=== PATIENT | female | born 1935 | race Caucasian/White ===

== ENCOUNTER 2016-11-05 10:53 | Emergency (ER) | payer MEDICARE, BC ==
[~2016-11-05] VITALS: Ht 165.1 cm; Wt 86.4 kg
[~2016-11-05 10:53] MED LIST: ADVAIR 250/28 DISKU1 IH; ADVIL 200MG TA200 MG PO; ALBUTEROL SULFAT3 M3 IH; ALLEGRA 180MG180 MG PO; ALLEGRA60 MG PO; ASPIR-LOW81 MG PO; ASPIRIN E.C. 8181 MG PO; ASTELIN NASAL S34 ML NS; AVELOX 400MG T400 MG PO; CALCIUM CITRAT200 MG PO; CARAFATE 1GM1 G PO; CARDIZEM CD120 MG PO; CETIRIZINE; CITRACAL + D 251 TAB PO; CITRACAL + D CA1 TAB PO; COLACE 100100 MG/CAP PO; COQ1060 MG PO; DIFLUCAN 100MG100 MG PO; DIOVAN HCT 25 M1 TA1 PO; DIOVAN HCT 25 M1 TAB PO; DIOVAN160 MG PO; DUONEB 3 MG/3 ML3 ML IH; FENTANYL 12MCG TD; FENTANYL 12MCG TOP; FENTANYL 25 MCG TD; FENTANYL 25 MCG TOP; FEXOFENADINE180 MG PO; FISH OIL CONC1000 MG PO; FISH OIL1 IU PO; FISH OIL1000 MG PO; FLAGYL500 MG PO; FLEXERIL 1010 MG/TAB PO; FLEXERIL10 MG PO; FLONASE NASAL S16 GM NS; GABAPENTIN; GARLIC PO; GARLIC SUPPLEM300 MG PO; GENTAMICIN180 MG/501 NS; GLUCOSAMINE & C1 CA1 PO; GLUCOSAMINE & C1 TA1 PO; GLUCOSAMINE/CHONDROI PO; HCTZ 25MG25 MG PO; HYDROXYCHLOROQ200 M1 PO; L-LYSINE MONOHY1 POW PO; L-LYSINE PO; L-LYSINE500 MG PO; LEVAQUIN 750MG750 M1 PO; LORTAB 7.5/5001 TAB PO; LOVENOX100 MG/ML SC; MUCINEX 60600 MG/TA1 PO; MVI PO; NEURONTIN300 MG/CAP PO; NORCO 325 MG-7.1 TAB PO; OXYCODONE5 MG PO; PLAQUENIL 200M200 MG PO; PLAQUENIL PO; PRAVACHOL 40MG40 MG PO; PREDNISONE 5MG5 MG PO; PREDNISONE20 MG; PREDNISONE20 MG PO; PREVACID 30MG30 M1 PO; PREVACID 30MG30 MG PO; PROVENTIL0.09 MG/A1 IH; PULMICORT0.5 MG/21 IH; RT ADVAIR HFA 1112 G IH; SEE LIST; SENOKOT8.6 MG PO; SINGULAIR 110 MG/TAB PO; SINGULAIR10 MG PO; SPIRIVA18 MCG IH; STRESS TABLETS1 TAB PO; TOPROL XL 25MG25 MG PO; TRAMADOL50 MG PO; ULTRAM 50MG TAB50 MG PO; ULTRAM100 MG PO; VALTREX1 GM PO; VITAMIN B-6 PO; VITAMIN B-650 MG PO; VITAMIN B650 MG PO; VITAMIN D PO; VITAMIN D50000 IU PO; VITAMIN E-400200 IU PO; VITAMIN E1000 U/CAP PO; VITAMIN E28000 IU TP; ZITHROMAX500 M2 PO; [UNRECOGNIZED DRUG - OTHER] PO; unknown meds
[2016-11-05 11:05] VITALS: TEMP 98.4
[2016-11-05 13:40] VITALS: BP 136/80; PULSE 74
[2016-11-11] MEDS ORDERED: NORCO 325 MG-7.1 TAB PO (08:58)
[2016-11-11] MEDS ORDERED: XARELTO10 MG PO (08:58)
== END 2016-11-05 13:42 | disposition home or self-care (01) ==
LOC: COL.ER 10:53
DX: S52.571A Other intraarticular fracture of lower end of right radius, initial encounter for closed fracture (principal); W18.09XA Striking against other object with subsequent fall, initial encounter
CPT/HCPCS: J3010

== ENCOUNTER → 2016-11-11 | Day surgery (SDC) | payer MEDICARE, BC ==
[~2016-11-11] VITALS: Ht 165.1 cm; Wt 87.1 kg
[~2016-11-11] MED LIST changes: +ALBUTEROL0.83 MG/ML IH; +CIPRO 500MG TA500 MG PO; +RT ADVAIR HFA 2312 G IH; +SPIRIVA RE2.5 MCG/Ac IH; +WOMEN'S DAILY1 TAB PO; +XARELTO10 MG PO
[2016-11-11 10:58] VITALS: BP 133/57; PULSE 83; TEMP 98.6
[2016-11-11 11:15] VITALS: BP 114/89; PULSE 83
[2016-11-11 11:30] VITALS: BP 132/90; PULSE 84
[2016-11-11 15:16] VITALS: BP 148/83; PULSE 78; TEMP 98.8
[2016-11-11 15:43] VITALS: BP 135/68; PULSE 80
== END ==
LOC: SDCO 11-09 09:30
DX: R06.02 Shortness of breath (principal); R05 Cough; M06.9 Rheumatoid arthritis, unspecified; G47.33 Obstructive sleep apnea (adult) (pediatric); M32.9 Systemic lupus erythematosus, unspecified; I27.2 Other secondary pulmonary hypertension; J32.9 Chronic sinusitis, unspecified; K21.9 Gastro-esophageal reflux disease without esophagitis; Z79.52 Long term (current) use of systemic steroids; J45.909 Unspecified asthma, uncomplicated; R60.9 Edema, unspecified; J38.7 Other diseases of larynx; Z79.899 Other long term (current) drug therapy
CPT/HCPCS: J2704; J3010

== ENCOUNTER 2016-11-13 16:13 | Emergency (ER) | payer MEDICARE, BC ==
[~2016-11-13] VITALS: Ht 165.1 cm; Wt 86.4 kg
[~2016-11-13 16:13] MED LIST changes: -ALBUTEROL0.83 MG/ML IH; -CIPRO 500MG TA500 MG PO; -RT ADVAIR HFA 2312 G IH; -SPIRIVA RE2.5 MCG/Ac IH; -WOMEN'S DAILY1 TAB PO
[2016-11-13 16:17] VITALS: TEMP 98.9
[2016-11-13 17:05] LABS: BASO % 0.2 % (0.0-2.0); GRAN # 7.7 (1.4-6.5); LYMPH # 0.9 (1.2-3.4); LYMPH % 9.1 % (20.0-51.0); MEAN CELL VOLUME 89 fl (80.0-100.0); MEAN CORPUSCULAR HGB CONC 33 g/dl (33.0-37.0); MONO # 1.1 (0.1-0.6); MONO % 10.8 % (1.7-9.3); PLATELET COUNT 280 K/mm3 (130-400); RED BLOOD COUNT 3.73 M/mm3 (4.10-5.30); REDCELL DISTRIBUTION WIDTH-CV 14.6 % (11.5-14.5); WHITE BLOOD COUNT 9.7 K/mm3 (4.8-10.8)
[2016-11-13 17:06] LABS: MEAN CORPUSCULAR HEMOGLOBIN 29 pg (27.0-31.0)
[2016-11-13] MEDS ORDERED: WOMEN'S DAILY1 TAB PO (17:14)
[2016-11-13] MEDS ORDERED: RT ADVAIR HFA 2312 G IH (17:16)
[2016-11-13 17:25] LABS: ADJUSTED CALCIUM 9.4 mg/dL (8.4-10.2); ALBUMIN 3.8 gm/dL (3.5-5.0); BILIRUBIN,TOTAL 0.9 mg/dL (0.0-1.0); CALCIUM 9.2 mg/dL (8.4-10.2); CREATININE, serum 0.97 mg/dL (0.52-1.25); POTASSIUM 4.8 mmol/L (3.4-5.0); TOTAL PROTEIN 7.3 gm/dL (6.4-8.2)
[2016-11-13 18:08] VITALS: BP 117/52; PULSE 75
== END 2016-11-13 18:10 | disposition home or self-care (01) ==
LOC: COL.ER 16:13
PROVIDERS: Family Medicine
DX: J20.9 Acute bronchitis, unspecified (principal)
CPT/HCPCS: J2930

== ENCOUNTER 2016-11-30 08:57 | Day surgery (SDC) | payer MEDICARE, BC ==
[~2016-11-30] VITALS: Ht 165.1 cm; Wt 87.0 kg
[~2016-11-30 08:57] MED LIST changes: +RT ADVAIR HFA 2312 G IH; +WOMEN'S DAILY1 TAB PO
[2016-11-30] MEDS ORDERED: PREDNISONE 5MG5 MG PO (10:01)
[2016-11-30 10:02] VITALS: BP 140/111; PULSE 74; TEMP 97.6
[2016-11-30 10:30] VITALS: BP 135/52; PULSE 78; TEMP 98.5
[2016-11-30 10:45] VITALS: BP 138/56; PULSE 78
[2016-11-30 11:00] VITALS: BP 141/63; PULSE 77
[2016-11-30 11:30] VITALS: BP 117/59; PULSE 82
== END 2016-11-30 11:30 | disposition home or self-care (01) ==
LOC: SDCO 08:57
DX: R05 Cough (principal); R06.02 Shortness of breath; M06.9 Rheumatoid arthritis, unspecified; M32.9 Systemic lupus erythematosus, unspecified; G47.33 Obstructive sleep apnea (adult) (pediatric); K21.9 Gastro-esophageal reflux disease without esophagitis; I27.2 Other secondary pulmonary hypertension; Z79.899 Other long term (current) drug therapy; Z79.52 Long term (current) use of systemic steroids; J45.909 Unspecified asthma, uncomplicated; R60.9 Edema, unspecified; J38.7 Other diseases of larynx; J32.9 Chronic sinusitis, unspecified; B49 Unspecified mycosis
CPT/HCPCS: J2704

== ENCOUNTER → 2017-01-12 | Outpatient (CLI) | payer MEDICARE, BC ==
[~2017-01-12] MED LIST changes: +ALBUTEROL0.83 MG/ML IH; +CIPRO 500MG TA500 MG PO; +SPIRIVA RE2.5 MCG/Ac IH
== END ==
LOC: MC.RAD 14:20
DX: Z12.31 Encounter for screening mammogram for malignant neoplasm of breast (principal)

== ENCOUNTER 2017-06-21 19:25 | Inpatient (IN) | payer MEDICARE, BC ==
[~2017-06-21] VITALS: Ht 165.1 cm; Wt 87.0 kg
[~2017-06-21 19:25] MED LIST changes: -ALBUTEROL0.83 MG/ML IH; -CIPRO 500MG TA500 MG PO; -SPIRIVA RE2.5 MCG/Ac IH
[2017-06-21 20:44] LABS: BASO % 0.2 % (0.0-2.0); EOS % 0.2 % (0-4.0); GRAN # 5.5 (1.4-6.5); GRAN % 87.6 % (42.2-75.2); HEMATOCRIT 41.2 % (37.0-47.0); HEMOGLOBIN 13.8 g/dl (12.5-16.0); LYMPH # 0.2 (1.2-3.4); LYMPH % 2.5 % (20.0-51.0); MEAN CELL VOLUME 88 fl (80.0-100.0); MEAN CORPUSCULAR HEMOGLOBIN 30 pg (27.0-31.0); MEAN CORPUSCULAR HGB CONC 34 g/dl (33.0-37.0); MEAN PLATELET VOLUME 9.4 fl (7.4-10.4); MONO # 0.6 (0.1-0.6); MONO % 9.2 % (1.7-9.3); PLATELET COUNT 199 K/mm3 (130-400); RED BLOOD COUNT 4.67 M/mm3 (4.10-5.30); REDCELL DISTRIBUTION WIDTH-CV 14.6 % (11.5-14.5); WHITE BLOOD COUNT 6.3 K/mm3 (4.8-10.8)
[2017-06-21 20:56] LABS: ALANINE AMINOTRANSFERASE 39 U/L (9-52); ALBUMIN 4.4 gm/dL (3.5-5.0); ALKALINE PHOSPHATASE 53 U/L (50-136); ANION GAP 13 mmol/L (7-16); BILIRUBIN,TOTAL 0.7 mg/dL (0.0-1.0); BLOOD UREA NITROGEN 27 mg/dL (7-17); C-REACTIVE PROTEIN 2.2 mg/dL (0.0-0.9); CALCIUM 9.3 mg/dL (8.4-10.2); CARBON DIOXIDE 23 mmol/L (22-30); CHLORIDE 101 mmol/L (98-107); CREATININE, serum 0.97 mg/dL (0.52-1.25); GLUCOSE 120 mg/dL (74-106); LIPASE 47 U/L (23-300); POTASSIUM 4.5 mmol/L (3.4-5.0); SODIUM 138 mmol/L (137-145); TOTAL PROTEIN 7.7 gm/dL (6.4-8.2)
[2017-06-21 21:13] LABS: TROPONIN-I < 0.012 ng/mL (0.000-0.034)
[2017-06-22 00:41] VITALS: BP 121/42; PULSE 92; TEMP 99.9
[2017-06-22] MEDS ORDERED: SPIRIVA RE2.5 MCG/Ac IH (00:59)
[2017-06-22] MEDS ORDERED: ALBUTEROL0.83 MG/ML IH (01:07)
[2017-06-22 05:21] VITALS: BP 127/43; PULSE 97; TEMP 98.2
[2017-06-22 07:27] VITALS: BP 110/81; PULSE 94; TEMP 98.6
[2017-06-22 11:15] VITALS: BP 121/40; PULSE 88; TEMP 98.8
[2017-06-22 15:07] VITALS: BP 139/44; PULSE 92; TEMP 99.6
[2017-06-22 22:51] VITALS: BP 100/79; PULSE 88; TEMP 99
[2017-06-23 05:45] VITALS: BP 121/63; PULSE 85; TEMP 98.7
[2017-06-23 07:24] VITALS: BP 135/65; PULSE 90; TEMP 98.6
[2017-06-23 11:47] LABS: PH 5 (5-8); URINE APPEARANCE Cloudy; URINE BILIRUBIN Negative (NEGATIVE); URINE BLOOD 2+ (NEGATIVE); URINE COLOR Amber; URINE GLUCOSE Negative (NEGATIVE); URINE KETONE Negative (NEGATIVE); URINE UROBILINOGEN Negative (NEGATIVE)
[2017-06-23 11:48] LABS: URINE BACTERIA Occasional /hpf
[2017-06-23 12:31] LABS: BASO % 0.2 % (0.0-2.0); GRAN # 4.7 (1.4-6.5); GRAN % 87.5 % (42.2-75.2); LYMPH # 0.3 (1.2-3.4); LYMPH % 4.7 % (20.0-51.0); MEAN CELL VOLUME 90 fl (80.0-100.0); MEAN CORPUSCULAR HGB CONC 33 g/dl (33.0-37.0); MEAN PLATELET VOLUME 9.8 fl (7.4-10.4); MONO # 0.4 (0.1-0.6); MONO % 6.9 % (1.7-9.3); PLATELET COUNT 162 K/mm3 (130-400); RED BLOOD COUNT 3.78 M/mm3 (4.10-5.30); REDCELL DISTRIBUTION WIDTH-CV 15.4 % (11.5-14.5); WHITE BLOOD COUNT 5.4 K/mm3 (4.8-10.8)
[2017-06-23 12:33] LABS: HEMATOCRIT 34.1 % (37.0-47.0); HEMOGLOBIN 11.2 g/dl (12.5-16.0); MEAN CORPUSCULAR HEMOGLOBIN 30 pg (27.0-31.0)
[2017-06-23 12:40] LABS: CALCIUM 7.7 mg/dL (8.4-10.2); CREATININE, serum 0.76 mg/dL (0.52-1.25); POTASSIUM 4.3 mmol/L (3.4-5.0)
[2017-06-23 12:46] VITALS: BP 123/58; PULSE 93; TEMP 98.3
[2017-06-23 14:54] VITALS: BP 145/57; PULSE 88; TEMP 99.3
[2017-06-23 21:36] VITALS: BP 137/48; PULSE 91; TEMP 98.5
[2017-06-24 01:28] VITALS: BP 115/46; PULSE 76; TEMP 98
[2017-06-24 05:16] VITALS: BP 115/47; PULSE 78; TEMP 97.6
[2017-06-24 08:57] VITALS: BP 140/64; PULSE 95; TEMP 98.1
[2017-06-24 09:03] LABS: BASO % 0.2 % (0.0-2.0); GRAN % 73.7 % (42.2-75.2); LYMPH # 0.8 (1.2-3.4); LYMPH % 14.2 % (20.0-51.0); MEAN CELL VOLUME 89 fl (80.0-100.0); MEAN CORPUSCULAR HGB CONC 34 g/dl (33.0-37.0); MEAN PLATELET VOLUME 9.9 fl (7.4-10.4); MONO # 0.6 (0.1-0.6); MONO % 11.5 % (1.7-9.3); PLATELET COUNT 163 K/mm3 (130-400); RED BLOOD COUNT 3.91 M/mm3 (4.10-5.30); REDCELL DISTRIBUTION WIDTH-CV 15.1 % (11.5-14.5); WHITE BLOOD COUNT 5.4 K/mm3 (4.8-10.8)
[2017-06-24 09:07] LABS: HEMATOCRIT 34.6 % (37.0-47.0); HEMOGLOBIN 11.7 g/dl (12.5-16.0); MEAN CORPUSCULAR HEMOGLOBIN 30 pg (27.0-31.0)
[2017-06-24 09:20] LABS: CALCIUM 7.5 mg/dL (8.4-10.2); CREATININE, serum 0.66 mg/dL (0.52-1.25); POTASSIUM 3.8 mmol/L (3.4-5.0)
[2017-06-24 12:00] VITALS: BP 128/56; PULSE 86; TEMP 99.1
[2017-06-24] MEDS ORDERED: PREDNISONE 5MG5 MG PO (14:38)
[2017-06-24] MEDS ORDERED: CIPRO 500MG TA500 MG PO (14:38)
== END 2017-06-24 18:09 | disposition home or self-care (01) | DRG 389 ==
LOC: COL.ER 19:25 → MEDICAL 23:26 → COL.ER 23:26 → MEDICAL 23:32
PROVIDERS: Emergency Medicine; Physician Assistant
DX: K56.60 Unspecified intestinal obstruction (principal); N39.0 Urinary tract infection, site not specified; M32.9 Systemic lupus erythematosus, unspecified; I10 Essential (primary) hypertension; J44.9 Chronic obstructive pulmonary disease, unspecified; E86.0 Dehydration; R19.7 Diarrhea, unspecified; Z98.1 Arthrodesis status
CPT/HCPCS: OP; 99231-AI; 99233-AI; 99239; J0696; J1170; J1720; J2405; J3480; J7030; J7512; Q9967

== ENCOUNTER → 2017-07-05 | Outpatient (CLI) | payer MEDICARE, BC ==
[~2017-07-05] MED LIST changes: +ALBUTEROL0.83 MG/ML IH; +CIPRO 500MG TA500 MG PO; +SPIRIVA RE2.5 MCG/Ac IH
[2017-07-05 12:26] LABS: BASO % 0.3 % (0.0-2.0); EOS % 0.3 % (0-4.0); GRAN # 4.7 (1.4-6.5); GRAN % 77.6 % (42.2-75.2); LYMPH # 0.8 (1.2-3.4); LYMPH % 13.3 % (20.0-51.0); MEAN CELL VOLUME 89 fl (80.0-100.0); MEAN CORPUSCULAR HEMOGLOBIN 29 pg (27.0-31.0); MEAN CORPUSCULAR HGB CONC 33 g/dl (33.0-37.0); MEAN PLATELET VOLUME 9.7 fl (7.4-10.4); MONO # 0.5 (0.1-0.6); PLATELET COUNT 216 K/mm3 (130-400); RED BLOOD COUNT 4.09 M/mm3 (4.10-5.30); REDCELL DISTRIBUTION WIDTH-CV 15.6 % (11.5-14.5); WHITE BLOOD COUNT 6.1 K/mm3 (4.8-10.8)
[2017-07-05 12:36] LABS: HEMATOCRIT 36.4 % (37.0-47.0)
== END ==
LOC: COL.RAD 07-04 13:30 → COL.LAB 10:25 → COL.RAD 10:30
PROVIDERS: Internal Medicine
DX: J45.40 Moderate persistent asthma, uncomplicated (principal)

== ENCOUNTER → 2017-08-16 | Outpatient (CLI) | payer MEDICARE, BC | LOC: COL.RAD 09:16 | DX: I27.0 Primary pulmonary hypertension (principal); R06.00 Dyspnea, unspecified; Z86.711 Personal history of pulmonary embolism; R76.0 Raised antibody titer | CPT/HCPCS: A9539; A9540 ==

== ENCOUNTER → 2018-04-17 | Outpatient (CLI) | payer MEDICARE, BC | LOC: MC.RAD 11:40 | DX: Z12.31 Encounter for screening mammogram for malignant neoplasm of breast (principal) ==

== ENCOUNTER 2018-09-29 13:28 | Inpatient (IN) | payer MEDICARE, BC ==
[~2018-09-29] VITALS: Ht 165.1 cm; Wt 80.2 kg
[2018-09-29 15:57] LABS: COLLECTION METHOD CLEAN CATCH
[2018-09-29 16:02] LABS: MUCOUS Present /lpf; PH 5 (5-8); SQUAMOUS EPITHELIAL 0-2 /hpf; URINE APPEARANCE Clear; URINE BACTERIA None Seen /hpf; URINE BILIRUBIN Negative (NEGATIVE); URINE BLOOD 1+ (NEGATIVE); URINE COLOR Yellow; URINE GLUCOSE Negative (NEGATIVE); URINE KETONE Trace (NEGATIVE); URINE LEUKOCYTE ESTERASE Negative (NEGATIVE); URINE NITRATE Negative (NEGATIVE); URINE PROTEIN(semi-quant) 2+ (NEGATIVE); URINE RBC 0-2 /hpf; URINE UROBILINOGEN Negative (NEGATIVE)
[2018-09-29] MEDS ORDERED: PROLIA60 MG/ML SQ (16:02)
[2018-09-29] MEDS ORDERED: NORVASC 5MG5 MG/TAB PO (16:02)
[2018-09-29] MEDS ORDERED: VOLTAREN GEL 1%1 TU TP (16:02)
[2018-09-29] MEDS ORDERED: EPA FISH OIL1 SGL (16:06)
[2018-09-29] MEDS ORDERED: LASIX 20MG TABL20 MG PO (16:13)
[2018-09-29] MEDS ORDERED: L-LYSINE500 M1 (16:13)
[2018-09-29] MEDS ORDERED: NATURAL E400 IU PO (16:14)
[2018-09-29] MEDS ORDERED: GLUCOSAMINE & C1 CA2 PO (16:15)
[2018-09-29 16:24] LABS: HEMATOCRIT 40.1 % (37.0-47.0); HEMOGLOBIN 13.8 g/dl (12.5-16.0); MEAN CELL VOLUME 85 fl (80.0-100.0); MEAN CORPUSCULAR HEMOGLOBIN 29 pg (27.0-31.0); MEAN CORPUSCULAR HGB CONC 34 g/dl (33.0-37.0); MEAN PLATELET VOLUME 9.4 fl (7.4-10.4); PLATELET COUNT 255 K/mm3 (130-400); REDCELL DISTRIBUTION WIDTH-CV 14.6 % (11.5-14.5)
[2018-09-29 16:36] LABS: BILIRUBIN,TOTAL 0.5 mg/dL (0.0-1.0); C-REACTIVE PROTEIN 3.8 mg/dL (0.0-0.9); CALCIUM 8.9 mg/dL (8.4-10.2); CREATININE, serum 0.9 mg/dL (0.52-1.25); POTASSIUM 4.4 mmol/L (3.4-5.0); TOTAL PROTEIN 7.3 gm/dL (6.4-8.2)
[2018-09-29 16:46] LABS: BAND 3 % (0-10); LYMPHOCYTE 4 % (20.0-51.0); NEUTROPHILS 85 % (42.0-75.2); PLATELET ESTIMATE NORMAL (NORMAL)
[2018-09-29] MEDS ORDERED: CIPRO 500MG TA500 MG PO ×2 (17:55)
[2018-09-29] MEDS ORDERED: FLAGYL500 MG PO ×2 (17:55)
[2018-09-29 20:35] VITALS: BP 133/48; PULSE 85; TEMP 99.8
[2018-09-29 23:45] VITALS: BP 121/42; PULSE 91; TEMP 98.6
[2018-09-30 04:13] VITALS: BP 142/50; PULSE 84
[2018-09-30 07:15] VITALS: BP 107/49; PULSE 85; TEMP 98.3
[2018-09-30 07:17] LABS: BASO % 0.4 % (0.0-2.0); EOS % 0.1 % (0-4.0); GRAN # 6.3 (1.4-6.5); HEMOGLOBIN 12.1 g/dl (12.5-16.0); LYMPH # 0.7 (1.2-3.4); LYMPH % 9.1 % (20.0-51.0); MEAN CELL VOLUME 88 fl (80.0-100.0); MEAN CORPUSCULAR HEMOGLOBIN 30 pg (27.0-31.0); MEAN CORPUSCULAR HGB CONC 34 g/dl (33.0-37.0); MEAN PLATELET VOLUME 9.7 fl (7.4-10.4); MONO # 0.7 (0.1-0.6); MONO % 8.6 % (1.7-9.3); PLATELET COUNT 188 K/mm3 (130-400); RED BLOOD COUNT 4.07 M/mm3 (4.10-5.30)
[2018-09-30 07:21] LABS: HEMATOCRIT 35.7 % (37.0-47.0)
[2018-09-30 07:29] LABS: CALCIUM 7.7 mg/dL (8.4-10.2); CREATININE, serum 0.76 mg/dL (0.52-1.25); POTASSIUM 3.8 mmol/L (3.4-5.0)
[2018-09-30 11:25] VITALS: BP 144/48; PULSE 86; TEMP 98.6
[2018-09-30 15:15] VITALS: BP 123/47; PULSE 87; TEMP 98.6
[2018-09-30 20:20] VITALS: BP 119/81; PULSE 79
[2018-10-01 00:47] VITALS: BP 129/53; PULSE 80
[2018-10-01 04:58] VITALS: BP 126/52; PULSE 77; TEMP 97.4
[2018-10-01 06:23] LABS: BASO % 0.5 % (0.0-2.0); GRAN % 70.2 % (42.2-75.2); HEMOGLOBIN 10.6 g/dl (12.5-16.0); LYMPH # 0.7 (1.2-3.4); LYMPH % 16.2 % (20.0-51.0); MEAN CELL VOLUME 88 fl (80.0-100.0); MEAN CORPUSCULAR HEMOGLOBIN 30 pg (27.0-31.0); MEAN CORPUSCULAR HGB CONC 34 g/dl (33.0-37.0); MEAN PLATELET VOLUME 9.7 fl (7.4-10.4); MONO # 0.5 (0.1-0.6); MONO % 11.6 % (1.7-9.3); PLATELET COUNT 171 K/mm3 (130-400); RED BLOOD COUNT 3.59 M/mm3 (4.10-5.30); REDCELL DISTRIBUTION WIDTH-CV 15.2 % (11.5-14.5)
[2018-10-01 06:29] LABS: HEMATOCRIT 31.6 % (37.0-47.0)
[2018-10-01 06:30] LABS: ALBUMIN 2.7 gm/dL (3.5-5.0); BILIRUBIN,TOTAL 0.3 mg/dL (0.0-1.0); CALCIUM 6.8 mg/dL (8.4-10.2); CREATININE, serum 0.65 mg/dL (0.52-1.25); POTASSIUM 3.3 mmol/L (3.4-5.0); TOTAL PROTEIN 5.6 gm/dL (6.4-8.2)
[2018-10-01 07:39] VITALS: BP 101/71; PULSE 72; TEMP 98.3
[2018-10-01 11:26] VITALS: BP 136/52; PULSE 86; TEMP 98.4
[2018-10-01 15:03] VITALS: BP 119/46; PULSE 98; TEMP 97.5
[2018-10-01 19:36] VITALS: BP 136/46; PULSE 88; TEMP 98.7
[2018-10-02] VITALS (7 sets, daily range): BP systolic 106–142; BP diastolic 43–80; PULSE 72–89; TEMP 97.3–100.3
[2018-10-02 06:06] LABS: BASO % 0.3 % (0.0-2.0); EOS # 0.1 (0.0-0.7); EOS % 2.6 % (0-4.0); GRAN # 1.9 (1.4-6.5); GRAN % 60.5 % (42.2-75.2); HEMOGLOBIN 10.9 g/dl (12.5-16.0); LYMPH # 0.7 (1.2-3.4); LYMPH % 21.2 % (20.0-51.0); MEAN CELL VOLUME 88 fl (80.0-100.0); MEAN CORPUSCULAR HEMOGLOBIN 29 pg (27.0-31.0); MEAN CORPUSCULAR HGB CONC 34 g/dl (33.0-37.0); MEAN PLATELET VOLUME 9.7 fl (7.4-10.4); MONO # 0.5 (0.1-0.6); MONO % 15.4 % (1.7-9.3); PLATELET COUNT 202 K/mm3 (130-400); RED BLOOD COUNT 3.71 M/mm3 (4.10-5.30); REDCELL DISTRIBUTION WIDTH-CV 15.3 % (11.5-14.5)
[2018-10-02 06:12] LABS: HEMATOCRIT 32.5 % (37.0-47.0)
[2018-10-02 06:13] LABS: CALCIUM 7.2 mg/dL (8.4-10.2); CREATININE, serum 0.67 mg/dL (0.52-1.25); POTASSIUM 3.9 mmol/L (3.4-5.0)
[2018-10-03] VITALS (7 sets, daily range): BP systolic 99–142; BP diastolic 51–65; PULSE 67–91; TEMP 98.1–99.3
[2018-10-03 06:11] LABS: BASO % 0.9 % (0.0-2.0); EOS # 0.1 (0.0-0.7); EOS % 3.2 % (0-4.0); GRAN % 62.2 % (42.2-75.2); HEMOGLOBIN 11.4 g/dl (12.5-16.0); LYMPH # 0.6 (1.2-3.4); LYMPH % 20.2 % (20.0-51.0); MEAN CELL VOLUME 87 fl (80.0-100.0); MEAN CORPUSCULAR HEMOGLOBIN 29 pg (27.0-31.0); MEAN CORPUSCULAR HGB CONC 33 g/dl (33.0-37.0); MEAN PLATELET VOLUME 9.2 fl (7.4-10.4); MONO # 0.4 (0.1-0.6); MONO % 13.2 % (1.7-9.3); PLATELET COUNT 209 K/mm3 (130-400); RED BLOOD COUNT 3.93 M/mm3 (4.10-5.30); REDCELL DISTRIBUTION WIDTH-CV 15.2 % (11.5-14.5)
[2018-10-03 06:12] LABS: HEMATOCRIT 34.1 % (37.0-47.0)
[2018-10-03 06:24] LABS: CALCIUM 7.2 mg/dL (8.4-10.2); CREATININE, serum 0.62 mg/dL (0.52-1.25); POTASSIUM 3.7 mmol/L (3.4-5.0)
[2018-10-04 01:11] VITALS: BP 139/49; PULSE 88; TEMP 98.7
[2018-10-04 04:45] VITALS: BP 148/57; PULSE 88; TEMP 97.8
[2018-10-04 07:38] VITALS: BP 123/70; PULSE 81; TEMP 98.9
[2018-10-04 08:54] LABS: BASO % 0.7 % (0.0-2.0); EOS # 0.1 (0.0-0.7); EOS % 3.4 % (0-4.0); GRAN # 1.7 (1.4-6.5); GRAN % 59.3 % (42.2-75.2); HEMATOCRIT 34.3 % (37.0-47.0); HEMOGLOBIN 11.5 g/dl (12.5-16.0); LYMPH # 0.7 (1.2-3.4); LYMPH % 22.6 % (20.0-51.0); MEAN CELL VOLUME 87 fl (80.0-100.0); MEAN CORPUSCULAR HEMOGLOBIN 29 pg (27.0-31.0); MEAN CORPUSCULAR HGB CONC 34 g/dl (33.0-37.0); MEAN PLATELET VOLUME 9.4 fl (7.4-10.4); MONO # 0.4 (0.1-0.6); MONO % 13.7 % (1.7-9.3); PLATELET COUNT 209 K/mm3 (130-400); RED BLOOD COUNT 3.94 M/mm3 (4.10-5.30); REDCELL DISTRIBUTION WIDTH-CV 15.2 % (11.5-14.5)
[2018-10-04 09:08] LABS: CALCIUM 7.4 mg/dL (8.4-10.2); CREATININE, serum 0.62 mg/dL (0.52-1.25)
[2018-10-04 12:03] VITALS: BP 141/55; PULSE 86; TEMP 98.3
== END 2018-10-04 17:45 | disposition home or self-care (01) | DRG 395 ==
LOC: COL.ER 13:28 → MEDICAL 19:22
PROVIDERS: Family Medicine; Hospitalist; Internal Medicine Gastroenterology; Nurse Practitioner; Physician Assistant
PROC: 0DJD8ZZ Inspection of Lower Intestinal Tract, Via Natural or Artificial Opening Endoscopic (ICD-10-PCS; principal; 2018-10-03 14:00)
DX: K55.031 Focal (segmental) acute (reversible) ischemia of large intestine (principal); K57.30 Diverticulosis of large intestine without perforation or abscess without bleeding; I10 Essential (primary) hypertension; M32.9 Systemic lupus erythematosus, unspecified; G62.9 Polyneuropathy, unspecified; J45.909 Unspecified asthma, uncomplicated; Z86.718 Personal history of other venous thrombosis and embolism; Z86.711 Personal history of pulmonary embolism; Z79.01 Long term (current) use of anticoagulants; I73.00 Raynaud's syndrome without gangrene; E87.6 Hypokalemia; G89.29 Other chronic pain; M54.9 Dorsalgia, unspecified
CPT/HCPCS: 99223-AI; 99232-AI; 99233-AI; 99239; J0744; J1170; J2405; J2704; J3010; J7030; J7040; Q9967

== ENCOUNTER 2018-10-17 13:09 | Emergency (ER) | payer MEDICARE, BC ==
[~2018-10-17] VITALS: Ht 165.1 cm; Wt 81.4 kg
[~2018-10-17 13:09] MED LIST changes: +EPA FISH OIL1 SGL; +GLUCOSAMINE & C1 CA2 PO; +L-LYSINE500 M1; +LASIX 20MG TABL20 MG PO; +NATURAL E400 IU PO; +NORVASC 5MG5 MG/TAB PO; +PROLIA60 MG/ML SQ; +VOLTAREN GEL 1%1 TU TP
[2018-10-17 13:52] LABS: BASO % 0.5 % (0.0-2.0); GRAN # 2.6 (1.4-6.5); GRAN % 68.6 % (42.2-75.2); LYMPH # 0.6 (1.2-3.4); LYMPH % 16.8 % (20.0-51.0); MEAN CELL VOLUME 89 fl (80.0-100.0); MEAN CORPUSCULAR HEMOGLOBIN 30 pg (27.0-31.0); MEAN CORPUSCULAR HGB CONC 33 g/dl (33.0-37.0); MEAN PLATELET VOLUME 9.2 fl (7.4-10.4); MONO # 0.5 (0.1-0.6); MONO % 12.8 % (1.7-9.3); PLATELET COUNT 214 K/mm3 (130-400); RED BLOOD COUNT 4.06 M/mm3 (4.10-5.30); REDCELL DISTRIBUTION WIDTH-CV 15.4 % (11.5-14.5)
[2018-10-17 14:01] LABS: ALBUMIN 3.8 gm/dL (3.5-5.0); BILIRUBIN,TOTAL 0.3 mg/dL (0.0-1.0); CALCIUM 8.7 mg/dL (8.4-10.2); CREATININE, serum 0.77 mg/dL (0.52-1.25); POTASSIUM 4.4 mmol/L (3.4-5.0); TOTAL PROTEIN 6.8 gm/dL (6.4-8.2)
[2018-10-17 15:05] VITALS: BP 130/65; PULSE 83; TEMP 97.9
== END 2018-10-17 15:06 | disposition home or self-care (01) ==
LOC: COL.ER 13:09
PROVIDERS: Emergency Medicine
DX: R60.9 Edema, unspecified (principal); Z86.718 Personal history of other venous thrombosis and embolism; Z90.89 Acquired absence of other organs; Z90.49 Acquired absence of other specified parts of digestive tract; Z79.51 Long term (current) use of inhaled steroids

== ENCOUNTER 2019-02-20 08:56 | Day surgery (SDC) | payer MEDICARE, BC ==
[~2019-02-20] VITALS: Ht 165.1 cm; Wt 78.3 kg
[2019-02-20 09:56] VITALS: BP 138/53; PULSE 75; TEMP 98.4
[2019-02-20 10:23] VITALS: BP 118/49; PULSE 54; TEMP 98.8
--- NOTE | 2019-02-20 10:23 | NUR ---
Pt to [facility] [place] bay 2 via cart from [place]. Pt awake and alert. Denies pain or nausea. Incision to right inner thigh has thurman set intact. No drainage noted. Juice and muffin given per pt request. in room. Will continue to monitor. Call light within reach.
[2019-02-20 10:30] VITALS: BP 120/46; PULSE 81
--- NOTE | 2019-02-20 10:30 | NUR ---
Pt continues to rest. Denies needs. Tolerating food and fluids without difficulties. Call light within reach.
[2019-02-20 10:45] VITALS: BP 135/80; PULSE 87
--- NOTE | 2019-02-20 10:45 | NUR ---
Pt continues to rest. Denies needs. Call light within reach.
[2019-02-20 11:00] VITALS: BP 131/52; PULSE 80
--- NOTE | 2019-02-20 11:00 | NUR ---
Discharge instructions reviewed. Pt voices understanding. IV site discontinued with all parts intact. Pt up to dress with assistance from her . Call light within reach.
--- NOTE | 2019-02-20 11:45 | NUR ---
Pt escorted to private car via wheel chair. Pt accompanied home by her .
== END 2019-02-20 11:45 | disposition home or self-care (01) ==
LOC: SDCO 08:56
DX: D17.23 Benign lipomatous neoplasm of skin and subcutaneous tissue of right leg (principal); Z79.51 Long term (current) use of inhaled steroids; Z79.01 Long term (current) use of anticoagulants; G47.33 Obstructive sleep apnea (adult) (pediatric); J45.909 Unspecified asthma, uncomplicated; I10 Essential (primary) hypertension; I73.00 Raynaud's syndrome without gangrene; K21.9 Gastro-esophageal reflux disease without esophagitis; D47.2 Monoclonal gammopathy; Z90.49 Acquired absence of other specified parts of digestive tract; Z80.9 Family history of malignant neoplasm, unspecified; Z86.711 Personal history of pulmonary embolism; Z86.718 Personal history of other venous thrombosis and embolism; G89.29 Other chronic pain; M81.0 Age-related osteoporosis without current pathological fracture; Z82.49 Family history of ischemic heart disease and other diseases of the circulatory system; Z88.5 Allergy status to narcotic agent; Z88.0 Allergy status to penicillin; Z88.1 Allergy status to other antibiotic agents; Z96.641 Presence of right artificial hip joint; Z90.710 Acquired absence of both cervix and uterus; I27.20 Pulmonary hypertension, unspecified; M54.9 Dorsalgia, unspecified; M06.9 Rheumatoid arthritis, unspecified; D64.9 Anemia, unspecified
CPT/HCPCS: J0690; J2704; J3010; J7120

== ENCOUNTER → 2019-08-05 | Outpatient (CLI) | payer MEDICARE, BC | LOC: MC.RAD 13:04 | DX: Z12.31 Encounter for screening mammogram for malignant neoplasm of breast (principal) ==